=== PATIENT | female | born 1955 | race Caucasian/White ===

== ENCOUNTER → 2017-01-06 | Day surgery (SDC) | payer OTHER ==
[~2017-01-06] VITALS: Ht 170.2 cm; Wt 130.2 kg
[~2017-01-06] MED LIST: ALBUTEROL 3 ML3 ML INH; ALBUTEROL2.5 MG/3 M INH/SOL; ATORVASTATIN CA10 MG PO; BYETTA250 MCG/ML SC; CYCLOBENZAPRINE10 M1 PO; CYCLOBENZAPRINE10 MG PO; DELTASONE20 MG PO; FUROSEMIDE40 MG PO; GLUCOPHAGE1000 MG PO; GUAIFENESIN-COD10 ML PO; K-DUR 20MEQ TA20 MEQ PO; LEVEMIR 10100 UNITS/ SC; LEVEMIR100 UNIT/1 SC; LISINOPRIL5 M1 PO; LUNESTA3 M1 PO; MYCOSTATIN POWD15 GM TOP; NEURONTIN300 M1 PO; NOVOLOG100 UNIT/2 SC; OMEPRAZOLE40 M1 PO; PERCOCET 325 MG1 TA2 PO; PERCOCET 5-3251 EACH PO; PREDNISONE 10MG10 M1 PO; PREDNISONE 20MG20 MG PO; PREDNISONE10 MG PO; PROAIR HFA8.5 GM; PROTONIX 40MG T40 MG PO; ROBITUSSIN W/CO10 ML PO; ROPINIROLE HCL0.5 MG PO; Robitussin AC PO; SEROQUEL 25MG T25 MG; SEROQUEL 25MG T25 MG PO; SEROQUEL50 MG PO; SINGULAIR10 MG PO; SOLU-MEDROL40 MG IV; SPIRIVA 18 MCG18 MCG INH; SYMBICORT 160/41 PUF INH; TESSALON PERLE100 MG PO; TOUJEO SOL300 UNIT/1 SC; TRILIPIX135 MG; TRILIPIX135 MG PO; VALIUM5 MG PO; VIBRAMYCIN 100100 MG PO; VICODIN 500 MG-1 TAB PO; ZITHROMAX Z-PA250 M1 PO; ZITHROMAX250 M2 PO
--- NOTE | 2017-01-06 08:56 | Operative Report ---
Operative/Inv Procedure Report Surgery Date: 01/06/17 Name of Procedure: Laparoscopic Cholecystectomy Pre-Operative Diagnosis: Cholelithiasis/Cholecystitis, Morbid Obesity, DM Post-Operative Diagnosis: Same Estimated Blood Loss: less than 50ml Surgeon/Tower Equipment Repairer: WILBERTO CHONG DO Anesthesia: general endotracheal tube IV Fluids: 700 cc Drains: None Specimens: Gallbladder Complications: None Condition: Stable Operative Indication: This is a 61-year-old female that is in the workup for bariatric surgery. Patient with a known history of gallstones underwent a repeat ultrasound that confirmed multiple gallstones. Patient does complain of on and off upper abdominal pain. Patient is in the workup for a gastric bypass. A laparoscopic cholecystectomy was discussed in detail. All risks including but not limited to bleeding, infection, bile leak, and injury to surrounding duct/bowel were discussed in detail. The patient understood everything and decided to proceed. Operative/Procedure Note Note: The patient was brought to the operating room and placed on the operating room table in supine position. Venodyne stockings were placed and adequate general endotracheal anesthesia was obtained. The patient was prepped and draped in standard surgical fashion. We began the procedure by making a 2 cm transverse incision supraumbilically and slightly to the right of the midline. Then using a 12 mm clear visiport and a 10mm 0 laparoscope the abdominal cavity was entered. Great care was taken to go through the anterior rectus sheath, the posterior rectus sheath, and through the peritoneum. Once we entered the peritoneum the abdominal cavity was insufflated to 15 mmHg. A 10 mm 30 laparoscope was introduced and upon initial examination no obvious gross pathology was seen. We did note a mildly distended gallbladder in the right upper quadrant and a very large/fatty liver. Accessory trocars were placed, all 5 mm, one in the epigastrium and 2 in the right upper quadrant (one in the midclavicular line and one in the anterior axillary line, both 2 fingerbreadths below the costal margin). The gallbladder was grasped with the lateralmost trocar and retracted up over the liver (of note it required pressure to get the gallbladder up due to the size/volume of the liver). Using the other 2 accessory trocars the infundibulum was grasped and the peritoneum was lysed using blunt dissection and using hook electrocautery. The cystic duct and cystic artery were visualized. The common bile duct was visualized and it was away from our area of dissection. The cystic duct and artery were skeletonized and divided between clips, 3 clips to stay and one clip on the gallbladder side for the duct and 2 clips to stay and one clip on the gallbladder side for the artery. The gallbladder was dissected off the liver bed using hook electrocautery maintaining hemostasis. Prior to completely removing the gallbladder off the liver bed we examined the area of dissection no obvious bile leak or bleeding was noted, the clips appeared to be in good position. The gallbladder was completely detached from the liver bed. We switched to a 5 mm laparoscope and a 10 mm Endobag was introduced through the periumbilical trocar site. The gallbladder was placed in the bag and removed. The abdomen was reinsufflated. We switched back to a 10 mm laparoscope and examined our area of dissection. No obvious bile leak or bleeding was noted. The right upper quadrant was irrigated until clear. All ports were removed under direct visualization, no obvious bleeding was noted. The skin was closed using 4-0 Monocryl. Steri-Strips and dressings were placed. The patient was successfully extubated and transferred to the recovery room in stable condition. The patient tolerated the procedure well with no complications. Findings: Large/fatty liver, multiple gallstones, thick wall CC: JUS WHITE APRN
== END ==
LOC: STS 02:53
DX: K80.10 Calculus of gallbladder with chronic cholecystitis without obstruction (principal); E11.9 Type 2 diabetes mellitus without complications; Z79.84 Long term (current) use of oral hypoglycemic drugs; E66.01 Morbid (severe) obesity due to excess calories; I10 Essential (primary) hypertension; J44.9 Chronic obstructive pulmonary disease, unspecified
CPT/HCPCS: 88304; J0131; J0690; J1100; J1644; J2250; J2405

== ENCOUNTER 2018-02-15 19:11 | Inpatient (IN) | payer OTHER ==
[~2018-02-15] VITALS: Ht 170.2 cm; Wt 97.5 kg
[~2018-02-15 19:11] MED LIST changes: +BYETTA10 MCG/0.0 SC; +BYETTA5 MCG/0.02 SC; +ESZOPICLONE3 M1 PO; +FUROSEMIDE20 M1 PO; -FUROSEMIDE40 MG PO; +GABAPENTIN400 M2 PO; +GLUCOPHAGE1000 M1 PO; -GLUCOPHAGE1000 MG PO; +HYDROCODON-ACE118 ML PO; +HYDROCODON-ACET15 ML PO; +HYDROCODONE CO120 ML PO; +LIDOCAINE-PRILO30 GM TOP; +LOVENOX40 MG/0.1 SC; +NORCO 5-325 TA1 EACH PO; +NOVOLOG100 UNIT/1; +PREMARIN30 GM; +PROTONIX40 M3 PO; +REQUIP1 M1 PO; +SINGULAIR10 M1 PO; -SINGULAIR10 MG PO; +TRILIPIX135 M1 PO; -TRILIPIX135 MG PO; +VALIUM5 M2 PO
--- NOTE | 2018-02-15 19:54 | ED NECK/BACK PAIN COMPLAINT ---
History of Present Illness General Chief Complaint: Low Back Pain/Injury Stated Complaint: LOWER BACK PAIN KNOWN KIDNEY STONE Source: patient, old records, son Exam Limitations: no limitations Vital Signs & Intake/Output Vital Signs & Intake/Output Vital Signs Date Time Temp Pulse Resp B/P B/P Pulse O2 O2 Flow FiO2 Mean Ox Delivery Rate 02/16 0123 97.8 78 18 140/67 97 Room Air 02/15 2245 97.0 81 22 130/76 98 Room Air 02/15 2117 97.4 73 18 130/68 98 02/15 1924 98.0 80 16 123/81 98 Room Air ED Intake and Output 02/16 0000 02/15 1200 Intake Total Output Total Balance Patient 201 lb Weight Weight Reported by Patient Measurement Method Allergies Coded Allergies: NO KNOWN ALLERGIES (08/07/16) Reconcile Medications Cyclobenzaprine HCl 10 MG TABLET 1 TAB PO TID SPASM (Reported) Eszopiclone 3 MG TABLET 1 TAB PO QPM SLEEP (Reported) Lidocaine/Prilocaine (Lidocaine-Prilocaine Cream) 2.5 %-2.5 % CREAM..G. 1 BRIGITTE TOP AD ARTHRITIC PAIN (Reported) Montelukast Sodium (Singulair) 10 MG TABLET 1 TAB PO DAILY ALLERGIES ( Reported) Ropinirole HCl (Requip) 1 MG TABLET 1 TAB PO QPM RESTLESS LEGS (Reported) Triage Note: PT HAS KNOWN LEFT KIDNEY STONE. SCHEDULED FOR PROCEDURE ON WEDNESDAY TO REMOVE. RAN OUT OF PERCOCET. STATES PAIN UNBEARABLE, CANNOT TOLERATE UNTIL WEDNESDAY. DENIES FEVERS/CHILLS. Triage Nurses Notes Reviewed? yes HPI: Patient presents for evaluation of severe constant left flank pain secondary to a known left kidney stone for which lithotripsy is pending next week. She states this particular episode of pain began at about 245 this afternoon. This described as a severe tearing pain in the left low back similar to prior kidney stone pain. The pain radiates to the left lower quadrant and to the left thigh. Patient hasn't tried any medications for this. She states she has had some pain with urination. (Mariella MCKINNON,Lars Norris) Past History Travel History Traveled to [place] past 21 day No Medical History Any Pertinent Medical History? 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 FATHER, ; Cause: Cancer. Relation not specified for: FH: cancer FH: diabetes mellitus Hx Contributory? No (Mariella MCKINNON,Lars Norris) Review of Systems Review of Systems Constitutional: Reports: no symptoms. Eyes: Reports: no symptoms. Ears, Nose, Throat, Mouth: Reports: no symptoms. Respiratory: Reports: no symptoms. Cardiovascular: Reports: no symptoms. Gastrointestinal/Abdominal: Reports: no symptoms. Musculoskeletal: Reports: see HPI. Skin: Reports: no symptoms. Neurological/Psychological: Reports: no symptoms. All Other Systems: Reviewed and Negative (aside from dysuria) (Mariella MCKINNON,Lars Norris) Physical Exam Physical Exam Neck: see below Comments: Gen.: Well-nourished, well-developed, no acute respiratory distress. Head: Normocephalic, atraumatic. Eyes: Normal inspection bilaterally Ears: Normal inspection bilaterally Nose: Normal inspection Throat/mouth : Moist mucosa Neck: Supple, full range of motion, no goiter Heart: Regular rate and rhythm, no murmurs rubs or gallops Lungs: Clear to auscultation bilaterally with normal air entry Chest: Nontender Back: Normal range of motion Abdomen: Soft, nontender, nondistended, normal bowel sounds Extremities: Normal range of motion grossly, equal radial pulses, no cyanosis clubbing or edema Neurologic: Cranial nerves grossly intact, speech is clear Skin: warm and dry Psychiatric: Calm, cooperative, no apparent delusions or hallucinations Core Measures CVA/TIA Diagnosis: No (Mariella MCKINNON,Lars Norris) Progress Differential Diagnosis: cauda equina syn, herniated disc, myofascial strain, ureterolithiasis Plan of Care: Orders Procedure Date/time Status Nothing by Mouth 02/16 B Active PARTIAL THROMBOPLASTIN TIME 02/16 118 Active PROTHROMBIN TIME 02/16 118 Active EKG 06/13 0118 Active TYPE & SCREEN (NOT X-MATCH) 02/16 0118 Active Pathway - chart 02/16 109 Active House Staff 02/16 109 Active Code Status 02/16 109 Active Patient Data 02/16 010 Active Saline Lock 02/16 37 Active ED Holding Orders 02/16 37 Active Admit to inpatient 02/16 37 Active Vital Signs 02/16 37 Active Code Status 02/16 37 Complete BLOOD CULTURE 02/160 Active Add-on Test (ER Only) 02/16 19 Active BLOOD CULTURE 02/16 19 Active VTE Mechanical Prophylaxis 02/16 UNK Active Intake & Output 02/15 2214 Active CULTURE,URINE 02/15 2205 Active URINALYSIS 02/15 1958 Complete LIPASE 02/15 1958 Complete COMPREHENSIVE METABOLIC PANEL 02/15 1958 Complete CBC WITHOUT DIFFERENTIAL 02/15 1958 Complete Laboratory Tests 02/15/182204: Urine Color YEL, Urine Clarity HAZY H, Urine pH 6.5, Ur Specific Roland 1.020, Urine Protein NEG, Urine Ketones NEG, Urine Nitrite NEG, Urine Bilirubin NEG, Urine Urobilinogen 0.2, Ur Leukocyte Esterase SMALL H, Ur Microscopic SEDIMENT EXAMINED, Urine RBC 3-5, Urine WBC 25-50 H, Ur Epithelial Cells RARE, Urine Bacteria FEW H, Urine Mucus MOD H, Urine Hemoglobin SMALL H, Urine Glucose NEG 02/15/182014: Anion Gap 10, Estimated GFR > 60, BUN/Creatinine Ratio 21.7, Glucose 121 H, Calcium 9.0, Total Bilirubin 0.4, AST 23, ALT 29, Alkaline Phosphatase 47, Total Protein 6.7, Albumin 3.9, Globulin 2.8, Albumin/Globulin Ratio 1.4, Lipase 740 H, CBC w Diff NO MAN DIFF REQ, RBC 3.86 L, MCV 90.7, MCH 30.7, MCHC 33.9, RDW 13.3, MPV 7.6, Gran % 64.7, Lymphocytes % 28.9, Monocytes % 5.1, Eosinophils % 1.0, Basophils % 0.3, Absolute Granulocytes 3.8, Absolute Lymphocytes 1.7, Absolute Monocytes 0.3, Absolute Eosinophils 0.1, Absolute Basophils 0 Microbiology 02/16 002 BLOOD: Blood Culture - ORD 02/16 19 BLOOD: Blood Culture - ORD 02/15 2205 URINE ROUT: Urine Culture - RECD Diagnostic Imaging: Discussed w/RAD: CT Scan. Radiology Impression: PATIENT: JANETH GRESHAM PRESENT AGE: 62 PATIENT ACCOUNT NO: [id number] : 56 LOCATION: [facility] ORDERING PHYSICIAN: Lars Wolff MD SERVICE DATE: 02/15/18 EXAM TYPE : CAT - CT ABD & PELVIS W/O IV CONTRAS EXAMINATION: CT ABDOMEN AND PELVIS WITHOUT CONTRAST CLINICAL INFORMATION: Left renal stone. Hydronephrosis. COMPARISON: Renal ultrasound 01/15/[address] of the abdomen and pelvis 2012. TECHNIQUE: Multidetector volumetric imaging was performed from the superior aspect of the liver through the pubic symphysis. Sagittal and coronal reformatted images were obtained on the technologist's workstation. DLP: 816 mGy -cm FINDINGS: LUNG BASES: The visualized lung bases are unremarkable. LIVER, GALLBLADDER, AND BILIARY TREE: There is a subcentimeter hypoattenuating lesion in the right lobe which is too small to further characterize but is stable since 08/27/2013. No intrahepatic biliary ductal dilatation. Cholecystectomy. PANCREAS : Unremarkable. SPLEEN: Unremarkable. Small splenule noted at the hilum. ADRENAL GLANDS: Unremarkable. KIDNEYS AND URETERS: Left: 2 calculi are present in the renal pelvis measuring 1.4 cm and 1.9 cm. The 1.4 cm calculus is obstructing the ureteropelvic junction. There is an additional punctate calculus in the interpolar region. There is hydronephrosis with pelviectasis and perinephric and periureteral stranding. The middle third of the ureter demonstrates normal caliber without periureteral stranding. Right: No right- sided calculi, hydronephrosis, or stranding. BLADDER: Decompressed but grossly normal. GASTROINTESTINAL TRACT: Postoperative changes related to gastric bypass surgery. No bowel obstruction. Normal appendix. No pericolonic inflammatory change. ABDOMINAL WALL: Small soft tissue nodules in the anterior abdominal wall likely represent granulomas which may be related to injection sites. LYMPH NODES : Small mahogany hepatis and portacaval lymph nodes which are likely reactive. VASCULAR: Minimal atheromatous changes in the abdominal aorta and its branch vessels. PELVIC VISCERA: Normal uterus and adnexa. OSSEOUS STRUCTURES: Multilevel degenerative changes in the thoracolumbar spine. Advanced facet arthropathy L4-L5 and L5-S1. No destructive osseous lesion. IMPRESSION: - Left kidney is obstructed at the level of the ureteropelvic junction by a 1.9 cm calculus. An additional 1.4 cm calculus is seen in the renal pelvis. There is perinephric and periureteral stranding. - Postoperative findings related to gastric bypass surgery. - No other acute abnormality in the abdomen or pelvis. DICTATED BY: Yanira Retana MD DATE/TIME DICTATED:02/15/182122 JOURNAL CLERK:SHINE DATE/TIME TRANSCRIBED:02/15/182122 CONFIDENTIAL, DO NOT COPY WITHOUT APPROPRIATE AUTHORIZATION. <Electronically signed in Other Vendor System> SIGNED BY: Yanira Retana MD 02/15/18 4509 Comments: 02/15/2018 10:46:50 PM patient's CAT scan reveals 2 renal pelvic stones. She is feeling better after morphine. She has white cells in the urine and she has an obstructive stone and so I am attempting to contact Dr. Choudhury. 02/15/2018 11:36:22 PM patient signed out to Dr. Fuentes at shift discovery manager. (Mariella MCKINNON,Lars Norris) Departure Departure Disposition: STILL A PATIENT Condition: Stable Referrals: Jeanette Johnson APRN (PCP/Family) Departure Forms: Customer Survey General Discharge Information (Mariella MCKINNON,Lars Norris) Departure Clinical Impression Primary Impression: Renal colic on left side Secondary Impressions: Kidney stones, Pyelonephritis, Ureteral obstruction, right Comments 02/16/18, 0:21.... discussed with dr. meier, urologist, who will take her to the OR for a stent. Admission Note Spoke With: Wilma Silva MD Documentation of Exam: Documentation of any treatments & extenuating circumstances including Concerns Regarding Discharge (functional status, medication knowledge or non-compliance, living conditions, etc.) that warrant an admission rather than observation: pt with 1.9cm kidney stone, with evidence of pyelonephritis... merits urgent stenting and iv abx (Zafar Fuentes MD) Critical Care Note Critical Care Note Critical Care Time: 30-74 min (Zafar Fuentes MD)
[2018-02-15 20:24] LABS: ABSOLUTE BASOPHIL COUNT 0 /CUMM (0.0-0.2); ABSOLUTE EOSINOPHIL COUNT 0.1 /CUMM (0.0-0.7); ABSOLUTE GRANULOCYTE CT 3.8 /CUMM (1.4-6.5); ABSOLUTE LYMPH COUNT 1.7 /CUMM (1.2-3.4); ABSOLUTE MONOCYTE COUNT 0.3 /CUMM (0.10-0.60); BASOPHIL % 0.3 % (0.0-2.0); GRANULOCYTE % 64.7 % (42.2-75.2); MEAN CORPUSCULAR HGB 30.7 PG (27.0-31.0); MEAN CORPUSCULAR HGB CONC 33.9 G/DL (33.0-37.0); MEAN CORPUSCULAR VOLUME 90.7 FL (81.0-99.0); MEAN PLATELET VOLUME 7.6 FL (7.4-10.4); PLATELET COUNT 210 /CUMM (130-400); RBC DISTRIBUTION WIDTH 13.3 % (11.5-14.5); RED BLOOD CELL CT 3.86 /CUMM (4.20-5.40); WHITE BLOOD CELL COUNT 5.9 /CUMM (4.8-10.8)
--- NOTE | 2018-02-15 21:50 | CT SCAN REPORT ---
EXAMINATION: CT ABDOMEN AND PELVIS WITHOUT CONTRAST CLINICAL INFORMATION: Left renal stone. Hydronephrosis. COMPARISON: Renal ultrasound 01/15/[address] of the abdomen and pelvis 08/28/2013. TECHNIQUE: Multidetector volumetric imaging was performed from the superior aspect of the liver through the pubic symphysis. Sagittal and coronal reformatted images were obtained on the technologist's workstation. DLP: 816 mGy-cm FINDINGS: LUNG BASES: The visualized lung bases are unremarkable. LIVER, GALLBLADDER, AND BILIARY TREE: There is a subcentimeter hypoattenuating lesion in the right lobe which is too small to further characterize but is stable since 08/27/2013. No intrahepatic biliary ductal dilatation. Cholecystectomy. PANCREAS: Unremarkable. SPLEEN: Unremarkable. Small splenule noted at the hilum. ADRENAL GLANDS: Unremarkable. KIDNEYS AND URETERS: Left: 2 calculi are present in the renal pelvis measuring 1.4 cm and 1.9 cm. The 1.4 cm calculus is obstructing the ureteropelvic junction. There is an additional punctate calculus in the interpolar region. There is hydronephrosis with pelviectasis and perinephric and periureteral stranding. The middle third of the ureter demonstrates normal caliber without periureteral stranding. Right: No right-sided calculi, hydronephrosis, or stranding. BLADDER: Decompressed but grossly normal. GASTROINTESTINAL TRACT: Postoperative changes related to gastric bypass surgery. No bowel obstruction. Normal appendix. No pericolonic inflammatory change. ABDOMINAL WALL: Small soft tissue nodules in the anterior abdominal wall likely represent granulomas which may be related to injection sites. LYMPH NODES: Small mahogany hepatis and portacaval lymph nodes which are likely reactive. VASCULAR: Minimal atheromatous changes in the abdominal aorta and its branch vessels. PELVIC VISCERA: Normal uterus and adnexa. OSSEOUS STRUCTURES: Multilevel degenerative changes in the thoracolumbar spine. Advanced facet arthropathy L4-L5 and L5-S1. No destructive osseous lesion. IMPRESSION: - Left kidney is obstructed at the level of the ureteropelvic junction by a 1.9 cm calculus. An additional 1.4 cm calculus is seen in the renal pelvis. There is perinephric and periureteral stranding. - Postoperative findings related to gastric bypass surgery. - No other acute abnormality in the abdomen or pelvis.
--- NOTE | 2018-02-16 01:46 | History & Physical ---
Rebecca MCKINNON,Prudencio 02/16/18 0146: General Information and HPI MD Statement: I have seen and personally examined JANETH GRESHAM and documented this H&P. The patient is a 62 year old F who presented with a patient stated chief complaint of [L flank pain, renal calculus]. Source of Information: patient, old records Exam Limitations: no limitations History of Present Illness: Patient is a 62-year-old female with a PMH significant for COPD, asthma, obstructive sleep apnea on CPAP, type 2 diabetes mellitus which resolved after gastric bypass surgery in May 2017, recurrent renal calculi, who presented to the [facility] ED complaining of severe left flank pain, nausea, vomiting. Patient's symptoms began approximately 1 month ago with left-sided flank pain radiating to the left lower quadrant of her abdomen, she follows with Dr. Choudhury who diagnosed the patient with a renal calculus and prescribed oral analgesic medication, patient's pain was under control until about 2 weeks ago when the pain recurred and was intermittent sharp. The morning of admission at approximately 11 AM pain became very severe with associated nausea and vomiting, at approximately 1430 the pain worsened and became unremitting. Since the onset of the pain patient has had hematuria, and mild dysuria. Patient endorses on the day of admission. She denies any fevers, chest pain, shortness of breath, lightheadedness, dizziness, syncope. Allergies/Medications Allergies: Coded Allergies: NO KNOWN ALLERGIES (08/07/16) Home Med list Cyclobenzaprine HCl 10 MG TABLET 1 TAB PO TID SPASM (Reported) Eszopiclone 3 MG TABLET 1 TAB PO QPM SLEEP (Reported) Lidocaine/Prilocaine (Lidocaine-Prilocaine Cream) 2.5 %-2.5 % CREAM..G. 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 FATHER, ; Cause: Cancer. Relation not specified for: FH: cancer FH: diabetes mellitus Psychosocial History Where do you live? Home Services at Home: None Primary Language: Micronesian Smoking Status: Former Smoker ETOH Use: denies use Illicit Drug Use: denies illicit drug use Functional Ability ADLs Independent: dressing, eating, toileting, bathing. Ambulation: independent IADLs Independent: shopping, housework, finances, food prep, telephone, transportation , medication admin. Review of Systems Review of Systems Constitutional: Reports: chills. Denies: fever, malaise. EENTM: Denies: blurred vision, double vision, visual changes. Cardiovascular: Denies: chest pain, palpitations, syncope. Respiratory: Denies: cough, short of breath, sputum production, wheezing. GI: Reports: abdominal pain (LLQ pain/L flank pain), nausea, vomiting. Denies: bloating, constipation, melena. Genitourinary: Reports: dysuria, frequency, hematuria. Musculoskeletal: Reports: no symptoms. Skin: Reports: no symptoms. Neurological/Psychological: Reports: no symptoms. Exam & Diagnostic Data Last 24 Hrs of Vital Signs/I&O Vital Signs Date Time Temp Pulse Resp B/P B/P Pulse O2 O2 Flow FiO2 Mean Ox Delivery Rate 02/16 0123 97.8 78 18 140/67 97 Room Air 02/15 2245 97.0 81 22 130/76 98 Room Air 02/157 97.4 73 18 130/68 98 02/15 1924 98.0 80 16 123/81 98 Room Air Intake & Output 02/16 0800 02/16 0000 02/15 1600 Intake Total Output Total Balance Patient 201 lb Weight Weight Reported by Patient Measurement Method Physical Exam General Appearance Alert, Oriented X3, Cooperative, No Acute Distress Skin Temp/Moisture Exam: Warm/Dry Sepsis Skin Exam (color): Normal for Ethnicity Cardiovascular Regular Rate, Normal S1, Normal S2, No Murmurs Lungs Clear to Auscultation, Normal Air Movement Abdomen Normal Bowel Sounds, Soft, LLQ, epigastric area tenderness to palpation, L CVA tenderness Neurological Normal Speech, Strength at 5/5 X4 Ext, Normal Tone, Sensation Intact, Cranial Nerves 3-12 NL Extremities No Clubbing, No Cyanosis, No Edema Last 24 Hrs of Labs/Rudy: Laboratory Tests 02/16/18114: PT 12.6 H, INR 1.15, APTT 40 H 02/15/182204: Urine Color YEL, Urine Clarity HAZY H, Urine pH 6.5, Ur Specific [place] 1.020, Urine Protein NEG, Urine Ketones NEG, Urine Nitrite NEG, Urine Bilirubin NEG, Urine Urobilinogen 0.2, Ur Leukocyte Esterase SMALL H, Ur Microscopic SEDIMENT EXAMINED, Urine RBC 3-5, Urine WBC 25-50 H, Ur Epithelial Cells RARE, Urine Bacteria FEW H, Urine Mucus MOD H, Urine Hemoglobin SMALL H, Urine Glucose NEG 02/15/182014: Anion Gap 10, Estimated GFR > 60, BUN/Creatinine Ratio 21.7, Glucose 121 H, Calcium 9.0, Total Bilirubin 0.4, AST 23, ALT 29, Alkaline Phosphatase 47, Total Protein 6.7, Albumin 3.9, Globulin 2.8, Albumin/Globulin Ratio 1.4, Lipase 740 H, CBC w Diff NO MAN DIFF REQ, RBC 3.86 L, MCV 90.7, MCH 30.7, MCHC 33.9, RDW 13.3, MPV 7.6, Gran % 64.7, Lymphocytes % 28.9, Monocytes % 5.1, Eosinophils % 1.0, Basophils % 0.3, Absolute Granulocytes 3.8, Absolute Lymphocytes 1.7, Absolute Monocytes 0.3, Absolute Eosinophils 0.1, Absolute Basophils 0 Microbiology 02/165 BLOOD: Blood Culture - RECD 02/16 115 BLOOD: Blood Culture - RECD 02/15 2205 URINE ROUT: Urine Culture - RECD Diagnostic Data Other Results LUNG BASES: The visualized lung bases are unremarkable. LIVER, GALLBLADDER, AND BILIARY TREE: There is a subcentimeter hypoattenuating lesion in the right lobe which is too small to further characterize but is stable since 08/27/2013. No intrahepatic biliary ductal dilatation. Cholecystectomy. PANCREAS: Unremarkable. SPLEEN: Unremarkable. Small splenule noted at the hilum. ADRENAL GLANDS: Unremarkable. KIDNEYS AND URETERS: Left: 2 calculi are present in the renal pelvis measuring 1.4 cm and 1.9 cm. The 1.4 cm calculus is obstructing the ureteropelvic junction. There is an additional punctate calculus in the interpolar region. There is hydronephrosis with pelviectasis and perinephric and periureteral stranding. The middle third of the ureter demonstrates normal caliber without periureteral stranding. Right: No right-sided calculi, hydronephrosis, or stranding. BLADDER: Decompressed but grossly normal. GASTROINTESTINAL TRACT: Postoperative changes related to gastric bypass surgery. No bowel obstruction. Normal appendix. No pericolonic inflammatory change. ABDOMINAL WALL: Small soft tissue nodules in the anterior abdominal wall likely represent granulomas which may be related to injection sites. LYMPH NODES: Small mahogany hepatis and portacaval lymph nodes which are likely reactive. VASCULAR: Minimal atheromatous changes in the abdominal aorta and its branch vessels. PELVIC VISCERA: Normal uterus and adnexa. OSSEOUS STRUCTURES: Multilevel degenerative changes in the thoracolumbar spine. Advanced facet arthropathy L4-L5 and L5-S1. No destructive osseous lesion. IMPRESSION: - Left kidney is obstructed at the level of the ureteropelvic junction by a 1.9 cm calculus. An additional 1.4 cm calculus is seen in the renal pelvis. There is perinephric and periureteral stranding. - Postoperative findings related to gastric bypass surgery. - No other acute abnormality in the abdomen or pelvis. Assessment/Plan Assessment: Patient is a 62-year-old female with a PMH significant for COPD, asthma, obstructive sleep apnea on CPAP, type 2 diabetes mellitus which resolved after gastric bypass surgery in May 2017, recurrent renal calculi, who presented to the [facility] ED complaining of severe left flank pain, nausea, vomiting. Patient was diagnosed with a left-sided renal calculus 1 month ago was being managed with p.o. analgesics and had been scheduled for lithotripsy on 02/21/18. Pain worsened approximately 2 weeks ago and became uncontrollable with associated nausea and vomiting on the day of presentation. Patient had also had hematuria and dysuria during this time. CT showed obstructing 1.9 cm calculus at the left ureteropelvic junction as well as a 1.4 centimeter calculus in the renal pelvis Vital signs on presentation: T 98, P 80, RR 16, BP 123/81, pulse ox 98% on room air Labs: WBC 5.9, H/H 11.9/35, platelets 210, CMP unremarkable, lipase 740, UA: small LE, pyuria, bacteria, small hemoglobin moderate mucus Problem list #Obstructing left renal calculus #Intractable nausea, vomiting, left flank pain #Chronic medical problems including COPD, MIRLANDE Plan -Admit to general medicine floor -Urology consult placed with Dr. Page, who will take patient to OR for stent placement -IV ceftriaxone -Nocturnal CPAP setting 13 -Trend lipase, likely elevated secondary to vomiting -Gentle hydration with IV fluids -TRC/nebs -Comfirm medication list in a.m. Diet: Clear liquid diet postoperatively and advance as tolerated given intractable nausea, vomiting DVT prophylaxis: Subcutaneous heparin, Alps CODE STATUS: Full code As Ranked By This Provider Problem List: 1. Kidney stones 2. Renal colic on left side Core Measures/Misc (05/23) Acute Coronary Syndrome ACS Diagnosis: No Congestive Heart Failure Congestive Heart Failure Diagnosis No Cerebrovascular Accident CVA/TIA Diagnosis: No VTE (View Protocol) VTE Risk Factors Age>40 No Mechanical VTE Prophylaxis d/t N/A MechProphylax Ordered No VTE Pharm Prophylaxis d/t NA PharmProphylax ordered Sepsis (View protocol) Sepsis Present: No If YES complete Sepsis Event Note If YES complete Sepsis Event Note Ari MCKINNON,[facility] 02/16/18 0401: Core Measures/Misc (05/23) Sepsis (View protocol) If YES complete Sepsis Event Note If YES complete Sepsis Event Note Resident Review Statement Resident Statement: examined this patient, discussed with journalism intern, agreed with journalism intern Other Findings: 62\F with PMHx COPD not on home o2, asthma, MIRLANDE on CPAP , T2DM that resolved after gastric bypass 05/2017, recurrent renal calculi, who presented with CC of severe left flank pain, nausea, vomiting. She reprort left side flank pain that started around 4 weeks ago, she was scheduled for stone removal next Wednesday by Dr. Choudhury. Her pain was fairly managed until 2 weeks ago when he started to be out of control. Earlier today she started to complain of CV her left flank pain that radiates to the groin and associated with nausea and nonbloody vomiting. She reports dysuria and hematuria, but denies fever, chills, diarrhea or constipation. CT abdomen confirmed left hydronephrosis with large obstructing stone. The patient was taken from the ED to the OR for left stent insertion by Dr. Page. Assessment The patient has a known history of recurrent kidney stone, tented with left flank pain and was found to have hydronephrosis with obstructive stone. She was taken to the OR by urology for stent placement. Control her pain, ausea and follow neurology recommendations. The patient has dysuria and hematuria. We will treat for UTI with ceftriaxone. She is hemodynamically stable and does not need the criteria for source. Problem list: * Left flank pain secondary to Left renal calculus with hydronephrosis and obstruction * UTI, grew pansensitive Escherichia coli in the past * Nausea and vomiting * Elevated lipase most likely secondary to nausea * COPD * MIRLANDE * Asthma * hx of T2DM Plan: * Admitted to general medicine floor * Continue IV ceftriaxone for UTI * Blood culture and urine culture * TRC/nebs * CPAP * Repeat lipase in the morning * IV hydration until tolerates oral intake * urology consult * Please confirm the medication in the morning -Clear liquid diet, advance as tolerated -DVT PPx with ALPS and SC hep -FC Wilma Silva 02/16/18 0643: Core Measures/Misc (05/23) Sepsis (View protocol) If YES complete Sepsis Event Note If YES complete Sepsis Event Note Attending MD Review Statement Attending Statement Attending MD Statement: examined this patient, discuss w/resident/PA/MATHEMATICS TECHNICIAN, agreed w/resident/PA/MATHEMATICS TECHNICIAN, reviewed EMR data (avail), reviewed images, amended to note Attending Assessment/Plan: CC: Left flank pain PMH: COPD, asthma, obstructive sleep apnea on CPAP, type 2 diabetes mellitus which resolved after gastric bypass surgery in May 2017, recurrent renal calculi, Patient came to ER for severe left-sided flank pain. She states that she has recurrent kidney stones and there is a large kidney stone on left side for which there was a planned procedure on Wednesday but she had worsening of pain, hematuria , dysuria, urinary frequency, fever, chills, nausea, vomiting and home so she decided to come to ER. She has been intermittently suffering with pain secondary to the stone since last 1 month. Patient follows up with Dr. Choudhury outpatient. Vitals: Temperature 98.0, pulse 80, RR 16, blood pressure 123/81, saturating 98% on room air. On exam: A O 3, cooperative, no acute distress, neck supple, JVD normal, no lymphadenopathy, mucosa moist, no focal neurological deficit, no dependent edema , no obvious skin rashes or inflammation CVS: S1-S2, RRR. RS: Clear to auscultate bilaterally. Abdomen: Soft, NT, ND, bowel sounds present mild left- sided CVA tenderness. CT abdomen pelvis without IV contrast: - Left kidney is obstructed at the level of the ureteropelvic junction by a 1.9 cm calculus. An additional 1.4 cm calculus is seen in the renal pelvis. There is perinephric and periureteral stranding. - Postoperative findings related to gastric bypass surgery. - No other acute abnormality in the abdomen or pelvis. Assessment and plan 62-year-old female with extensive past medical history as mentioned above presented in ER for severe left-sided flank pain with underlying history of left intrarenal stone. She had right CVA tenderness on examination, CT abdomen was repeated which showed obstructing stone in the ureteropelvic junction 1.9 cm with suspected pyelonephritis. Urologist was called from ER who came to evaluate the patient and inserted left sided stent. Patient is expected to get outpatient lithotripsy done by Dr. Choudhury on Wednesday, we will reconsult her if she plans to report the procedure. Patient also has elevated lipase probably secondary to vomiting + Obstructing left ureteropelvic calculus + Left pyelonephritis + History of COPD, asthma, obstructive sleep apnea on CPAP, type 2 diabetes mellitus which resolved after gastric bypass surgery in May 2017, recurrent renal calculi - Admit to general medicine - Gentle hydration - Aggressive pain management - Continue IV ceftriaxone - Trend lactate, repeat lipase in a.m. - Send urine cultures - Consult Dr. Choudhury - Continue nighttime CPAP
[2018-02-16 01:52] LABS: PT 12.6 SEC (9.4-12.5); PTT 40 SEC (25-37)
--- NOTE | 2018-02-16 01:52 | Cons- Urology ---
General Information and HPI Consulting Request Date of Consult: 02/16/18 Requested By: Wilma Silva MD Reason for Consult: SEVERE LEFT COLIC WITH N/V:UNCONTROLLED PAIN Source of Information: patient, old records Exam Limitations: no limitations History of Present Illness: 62 YEAR OLD WITH MULTIPLE MEDICAL PROBLEMS, CAME TO ER WITH SEVERE LEFT COLIC WITH N/V UNRESOLVED IN ER. CT CONFIRMS LEFT HYDRO WITH LARGE OBSTRUCTING URETER STONE. TO OR FOR STENT. ADMIT TO MED. FOR MANAGEMENT. Allergies/Medications Allergies: Coded Allergies: NO KNOWN ALLERGIES (08/07/16) Home Med List: Cyclobenzaprine HCl 10 MG TABLET 1 TAB PO TID SPASM (Reported) Eszopiclone 3 MG TABLET 1 TAB PO QPM SLEEP (Reported) Lidocaine/Prilocaine (Lidocaine-Prilocaine Cream) 2.5 %-2.5 % CREAM..G. 1 BRIGITTE TOP AD ARTHRITIC PAIN (Reported) Montelukast Sodium (Singulair) 10 MG TABLET 1 TAB PO DAILY ALLERGIES ( Reported) Ropinirole HCl (Requip) 1 MG TABLET 1 TAB PO QPM RESTLESS LEGS (Reported) Current Medications: Current Medications Sig/Rai Start time Last Medication Dose Route Stop Time Status Admin Ceftriaxone Sodium 1,000 MG DAILY 02/16 0900 UNVr IV Ceftriaxone Sodium 0 .STK-MED ONE 02/167 DC .ROUTE Ceftriaxone Sodium 2,000 MG ONCE ONE 02/15 233 DC 02/16 IV 02/15 2331 0136 Diphenhydramine HCl 0 .STK-MED ONE 02/158 DC .ROUTE Diphenhydramine HCl 25 MG ONCE ONE 02/15 2200 DC 02/15 IV 02/15 2201 2214 Ketorolac 0 .STK-MED ONE 02/15 2019 DC Tromethamine .ROUTE Ketorolac 30 MG ONCE ONE 02/16 2000 DC 02/15 Tromethamine IV 02/15 Morphine Sulfate 0 .STK-MED ONE 02/16 2232 DC .ROUTE Morphine Sulfate 6 MG ONCE ONE 02/15 2200 DC 02/15 IV 02/151 2227 Ondansetron HCl 0 .STK-MED ONE 02/15 2019 DC .ROUTE Ondansetron HCl 4 MG ONCE ONE 02/16 2000 DC 02/15 IV 02/15 Past History Medical History Neurological: NONE EENT: NONE Cardiovascular: hyperlipidemia Respiratory: asthma, bronchitis, COPD, obstructive sleep apnea, pulmonary embolism, pneumonia Gastrointestinal: NONE Hepatic: NONE Renal: RENAL CALCULI Musculoskeletal: chronic back pain Psychiatric: NONE Endocrine: diabetes Blood Disorders: NONE Cancer(s): NONE 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 FATHER, ; Cause: Cancer. Relation not specified for: FH: cancer FH: diabetes mellitus Psychosocial History Services at Home: None Functional Ability ADLs Independent: dressing, eating, toileting, bathing. Ambulation: independent IADLs Independent: shopping, housework, finances, food prep, telephone, transportation , medication admin. Review of Systems Review of Systems Constitutional: Reports: chills. EENTM: Denies: no symptoms. Cardiovascular: Denies: no symptoms. Respiratory: Denies: no symptoms. GI: Reports: abdominal pain, bloating. Genitourinary: Reports: hematuria. Musculoskeletal: Denies: no symptoms. Neurological/Psychological: Denies: no symptoms. Exam & Diagnostic Data Vital Signs and I&O Vital Signs Date Time Temp Pulse Resp B/P B/P Pulse O2 O2 Flow FiO2 Mean Ox Delivery Rate 02/16 0123 97.8 78 18 140/67 97 Room Air 02/15 2245 97.0 81 22 130/76 98 Room Air 02/157 97.4 73 18 130/68 98 02/15 1924 98.0 80 16 123/81 98 Room Air Intake & Output 02/16 0800 02/16 0000 02/15 1600 02/15 0800 02/15 0000 02/14 1600 Intake Total Output Total Balance Patient 201 lb Weight Weight Reported by Patient Measurement Method Physical Exam General Appearance: well developed/nourished, obese Head: atraumatic Eyes: Bilateral: normal appearance. Neck: normal inspection Respiratory: normal breath sounds Cardiovascular: regular rate/rhythm Gastrointestinal: normal bowel sounds Back: CVA tenderness (L) Extremities: normal inspection Neurologic/Psych: no motor/sensory deficits Reproductive: Normal female genitalia Last 24 Hours of Labs: Laboratory Tests 02/16 02/15 0115 2205 Coagulation PT Pending INR Pending APTT Pending Urines Urine Color (YEL,AMB,STR) YEL Urine Clarity (CLEAR) HAZY H Urine pH (5.0 - 8.0) 6.5 Ur Specific [place] (1.001 - 1.035) 1.020 Urine Protein (NEG,<30 MG/DL) NEG Urine Ketones (NEG) NEG Urine Nitrite (NEG) NEG Urine Bilirubin (NEG) NEG Urine Urobilinogen (0.1 - 1.0 EU/dl) 0.2 Ur Leukocyte Esterase (NEG) SMALL H Ur Microscopic SEDIMENT EXAMINED Urine RBC (0 - 5 /HPF) 3-5 Urine WBC (0 - 2 /HPF) 25-50 H Ur Epithelial Cells (NONE,FEW) RARE Urine Bacteria (NEG/NONE) FEW H Urine Mucus (FEW,NONE) MOD H Urine Hemoglobin (NEG) SMALL H Urine Glucose (N MG/DL) NEG 02/15 2015 Chemistry Sodium (137 - 145 mmol/L) 137 Potassium (3.5 - 5.1 mmol/L) 4.2 Chloride (98 - 107 mmol/L) 102 Carbon Dioxide (22 - 30 mmol/L) 24 Anion Gap (5 - 16) 10 BUN (7 - 17 mg/dL) 13 Creatinine (0.5 - 1.0 mg/dL) 0.6 Estimated GFR (>60 ml/min) > 60 BUN/Creatinine Ratio (7 - 25 %) 21.7 Glucose (65 - 99 mg/dL) 121 H Calcium (8.4 - 10.2 mg/dL) 9.0 Total Bilirubin (0.2 - 1.3 mg/dL) 0.4 AST (14 - 36 U/L) 23 ALT (9 - 52 U/L) 29 Alkaline Phosphatase (<127 U/L) 47 Total Protein (6.3 - 8.2 g/dL) 6.7 Albumin (3.5 - 5.0 g/dL) 3.9 Globulin (1.9 - 4.2 gm/dL) 2.8 Albumin/Globulin Ratio (1.1 - 2.2 %) 1.4 Lipase (23 - 300 U/L) 740 H Hematology CBC w Diff NO MAN DIFF REQ WBC (4.8 - 10.8 /CUMM) 5.9 RBC (4.20 - 5.40 /CUMM) 3.86 L Hgb (12.0 - 16.0 G/DL) 11.9 L Hct (37 - 47 %) 35.0 L MCV (81.0 - 99.0 FL) 90.7 MCH (27.0 - 31.0 PG) 30.7 MCHC (33.0 - 37.0 G/DL) 33.9 RDW (11.5 - 14.5 %) 13.3 Plt Count (130 - 400 /CUMM) 210 MPV (7.4 - 10.4 FL) 7.6 Gran % (42.2 - 75.2 %) 64.7 Lymphocytes % (20.5 - 51.1 %) 28.9 Monocytes % (1.7 - 9.3 %) 5.1 Eosinophils % (0 - 5 %) 1.0 Basophils % (0.0 - 2.0 %) 0.3 Absolute Granulocytes (1.4 - 6.5 /CUMM) 3.8 Absolute Lymphocytes (1.2 - 3.4 /CUMM) 1.7 Absolute Monocytes (0.10 - 0.60 /CUMM) 0.3 Absolute Eosinophils (0.0 - 0.7 /CUMM) 0.1 Absolute Basophils (0.0 - 0.2 /CUMM) 0 Imaging Results: PATIENT: JANETH GRESHAM PRESENT AGE: 62 PATIENT ACCOUNT NO: [id number] : 56 LOCATION: [facility] ORDERING PHYSICIAN: Lars Wolff MD SERVICE DATE: 02/15/18 EXAM TYPE: CAT - CT ABD & PELVIS W/O IV CONTRAS EXAMINATION: CT ABDOMEN AND PELVIS WITHOUT CONTRAST CLINICAL INFORMATION: Left renal stone. Hydronephrosis. COMPARISON: Renal ultrasound 01/15/[address] of the abdomen and pelvis 08/28/2013. TECHNIQUE: Multidetector volumetric imaging was performed from the superior aspect of the liver through the pubic symphysis. Sagittal and coronal reformatted images were obtained on the technologist's workstation. DLP: 816 mGy-cm FINDINGS: LUNG BASES: The visualized lung bases are unremarkable. LIVER, GALLBLADDER, AND BILIARY TREE: There is a subcentimeter hypoattenuating lesion in the right lobe which is too small to further characterize but is stable since 08/27/2013. No intrahepatic biliary ductal dilatation. Cholecystectomy. PANCREAS: Unremarkable. SPLEEN: Unremarkable. Small splenule noted at the hilum. ADRENAL GLANDS: Unremarkable. KIDNEYS AND URETERS: Left: 2 calculi are present in the renal pelvis measuring 1.4 cm and 1.9 cm. The 1.4 cm calculus is obstructing the ureteropelvic junction. There is an additional punctate calculus in the interpolar region. There is hydronephrosis with pelviectasis and perinephric and periureteral stranding. The middle third of the ureter demonstrates normal caliber without periureteral stranding. Right: No right-sided calculi, hydronephrosis, or stranding. BLADDER: Decompressed but grossly normal. GASTROINTESTINAL TRACT: Postoperative changes related to gastric bypass surgery. No bowel obstruction. Normal appendix. No pericolonic inflammatory change. ABDOMINAL WALL: Small soft tissue nodules in the anterior abdominal wall likely represent granulomas which may be related to injection sites. LYMPH NODES: Small mahogany hepatis and portacaval lymph nodes which are likely reactive. VASCULAR: Minimal atheromatous changes in the abdominal aorta and its branch vessels. PELVIC VISCERA: Normal uterus and adnexa. OSSEOUS STRUCTURES: Multilevel degenerative changes in the thoracolumbar spine. Advanced facet arthropathy L4-L5 and L5-S1. No destructive osseous lesion. IMPRESSION: - Left kidney is obstructed at the level of the ureteropelvic junction by a 1.9 cm calculus. An additional 1.4 cm calculus is seen in the renal pelvis. There is perinephric and periureteral stranding. - Postoperative findings related to gastric bypass surgery. - No other acute abnormality in the abdomen or pelvis. DICTATED BY: Yanira Retana MD DATE/TIME DICTATED:02/15/182122 BAKERY DELIVERER:SHINE DATE/TIME TRANSCRIBED:02/15/182122 CONFIDENTIAL, DO NOT COPY WITHOUT APPROPRIATE AUTHORIZATION. <Electronically signed in Other Vendor System> SIGNED BY: Yanira Retana MD 02/15/18 540 Assessment/Plan Assessment/Plan LEFT OBSTRUCTED KIDNEY WITH POSSIBLE SEPSIS AND UNCONTROLLED PAIN WITH N/V: STENT Copies To: Claudy Page MD Consult Acknowledgment - Thank you for your consult request. Attending Review Statement Attending Statement Attending Statement: examined this patient, discuss w/resident/PA/INSIDE METER TESTER Attending Assessment/Plan: FOR LEFT STENT: WILL CONTACT DR. HUTSON FOR F/U OF URETER STONE.
--- NOTE | 2018-02-16 02:30 | Operative Report ---
Operative/Inv Procedure Report Surgery Date: 02/16/18 Name of Procedure: cystoscopy: left stent insertion Pre-Operative Diagnosis: left renal colic with N/V Post-Operative Diagnosis: same Estimated Blood Loss: scant Surgeon/Electronic Resources Librarian: MD Page Arnold-urology Anesthesia: moderate sedation Complications: none Condition: improved-now pain free Operative/Procedure Note Note: The patient was taken to the operating room placed OR table in supine position. Timeout was performed, with the patient awake, in order to confirm anesthesia, and other pertinent perioperative information. After adequate anesthesia and antibiotics the patient was then placed lithotomy stirrups, draped and prepped in the usual surgical fashion. A 22 [place] cystoscope sheath with 30 angle lens was inserted into the urethra, subsequently into the bladder without difficulty. Upon thorough and systematic surveillance, the bladder was noted to be free of tumor, free of stone. Both ureteral orifices were in their orthotopic position with clear efflux from the right side. The left orifice was intubated with a tiger tail catheter. Retrograde pyelogram, with fluoroscopy, was gently performed in order to confirm hydronephrosis, and a 11 mm left ureter filling defect, consistent with stone, and proximal hydronephrosis. The retrograde pyelogram was also helpful in visualizing the radiolucent left ureters stone. The tiger tail catheter was then removed. The left orifice was then intubated with a 0.035 Glidewire, which was advanced into the left ureter, and renal pelvis, without difficulty, bypassing the left ureter stone. Over this Glidewire a 6 X 22 Bard onlay stent was rail-roaded, into the left ureter without difficulty. With the proximal coil of the stent noted in the left renal pelvis, and the distal coil in the bladder, the Glidewire was removed. The stent remained in proper place, confirmed cystoscopically, and fluoroscopically. The bladder was then drained via the cystoscope, which was then removed without difficulty. All sponege needle and instrument count were correct at the end of the case. The patient tolerated the procedure well, and was taken to recovery room in satisfactory condition. Discharge Disposition: Critical Care Unit Additional Comments: recovered in ICU then to be admitted to floor with medical team CC: Kei MCKINNON,Gabbie; Claudy Page MD
[2018-02-16 03:43] VITALS: BP 112/70
--- NOTE | 2018-02-16 06:45 | Admission Certification ---
Admission Certification Certification Statement - As attending physician, I certify that at the time of - admission, based on clinical presentation, severity of - symptoms, need for further diagnostic testing and - therapeutic interventions, and risk of adverse outcomes - without in-hospital treatment, in my clinical assessment, - this patient requires an acute hospital stay for a minimum - of two nights or longer. I have also considered psychsocial - factors such as support system, advanced age, financial - issues, cognitive issues, and failed out-patient treatments, - past re-admission history, safety of patient, and lack of - compliance as applicable. Specific rationale supporting this admission is: left Ureteropelvic obstructing stone with pyelonephritis
[2018-02-16 06:55] VITALS: BP 112/64
--- NOTE | 2018-02-16 07:31 | PN- Housestaff ---
[place] MCKINNON,Sami 02/16/18 0731: Subjective Follow-up For: pyelonephritis left renal pelvis 2cm nephrolithiasis with hydronephrosis Subjective: patient is afebrile continues to have left flank pain hematuria no new complaints Review of Systems Constitutional: Reports: see HPI. Objective Last 24 Hrs of Vital Signs/I&O Vital Signs Date Time Temp Pulse Resp B/P B/P Pulse O2 O2 Flow FiO2 Mean Ox Delivery Rate 02/16 1041 Room Air Room Air 02/16 0655 97.4 72 20 112/64 97 Room Air 02/16 0343 98.0 75 20 112/70 98 Room Air 02/16 0123 97.8 78 18 140/67 97 Room Air 02/15 2245 97.0 81 22 130/76 98 Room Air 02/15 2117 97.4 73 18 130/68 98 02/15 1924 98.0 80 16 123/81 98 Room Air Intake & Output 02/16 1600 02/16 0800 02/16 0000 Intake Total 360 Output Total 525 Balance -165 Intake, Oral 360 Output, Urine 525 Patient 97.522 kg 91.172 kg Weight Weight Bed scale Reported by Patient Measurement Method Physical Exam General Appearance: Alert, Oriented X3, Cooperative, No Acute Distress Cardiovascular: Regular Rate, Normal S1, Normal S2, No Murmurs Lungs: Clear to Auscultation, Normal Air Movement Abdomen: Normal Bowel Sounds, Soft, No Tenderness, No Masses, mild left cva tenderness Extremities: No Clubbing, No Cyanosis, No Edema, Normal Pulses Current Medications: Current Medications Sig/Rai Start time Last Medication Dose Route Stop Time Status Admin Ceftriaxone Sodium 1,000 MG DAILY 02/16 900 AC 02/16 IV 911 Ceftriaxone Sodium 0 .STK-MED ONE 02/16 0137 DC .ROUTE Ceftriaxone Sodium 2,000 MG ONCE ONE 02/15 2330 DC 02/16 IV 02/15 2331 0136 Chlorhexidine 0 .STK-MED ONE 02/16 0803 DC Gluconate TOP 02/16 0804 Cyclobenzaprine HCl 10 MG TID 02/16 09 AC 02/16 PO 0912 Diphenhydramine HCl 0 .STK-MED ONE 02/15 2218 DC .ROUTE Diphenhydramine HCl 25 MG ONCE ONE 02/15 2200 DC 02/15 IV 02/15 2201 2214 Ketorolac 0 .STK-MED ONE 02/15 2019 DC Tromethamine .ROUTE Ketorolac 30 MG ONCE ONE 02/16 2000 DC 02/15 Tromethamine IV 02/15 Lidocaine 1 BRIGITTE BID PRN 02/16 1030 AC TOP Midazolam HCl 2 MG .STK-MED ONE 02/16 0141 DC IM 02/16 0142 Montelukast Sodium 10 MG 1700 02/16 0900 AC 02/16 PO 0912 Morphine Sulfate 2 MG Q6P PRN 02/16 0430 CAN IV Morphine Sulfate 2 MG Q4P PRN 02/16 0400 AC 02/16 IV 1043 Morphine Sulfate 0 .STK-MED ONE 02/15 2232 DC .ROUTE Morphine Sulfate 6 MG ONCE ONE 02/15 2200 DC 02/15 IV 02/15 2201 2227 Ondansetron HCl 0 .STK-MED ONE 02/15 2019 DC .ROUTE Ondansetron HCl 4 MG ONCE ONE 02/16 2000 DC 02/15 IV 02/15 Oxycodone HCl 5 MG Q6 PRN 02/16 0430 02/16 PO 0912 Patient Medication 1 ED ONE ONE 02/16 1115 DC Teaching ED 02/16 1116 Ropinirole HCl 1 MG QPM 02/16 2100 AC PO Tramadol HCl 50 MG Q6 PRN 02/16 0430 AC PO Last 24 Hrs of Lab/Rudy Results Last 24 Hrs of Labs/Mics: Laboratory Tests 02/16/18 0657: Anion Gap 10, Estimated GFR > 60, BUN/Creatinine Ratio 18.3, Lipase 45, CBC w Diff NO MAN DIFF REQ, RBC 3.48 L, MCV 91.2, MCH 30.7, MCHC 33.7, RDW 13.1, MPV 7.6, Gran % 49.8, Lymphocytes % 45.0, Monocytes % 3.6, Eosinophils % 1.5, Basophils % 0.1, Absolute Granulocytes 2.4, Absolute Lymphocytes 2.1, Absolute Monocytes 0.2, Absolute Eosinophils 0.1, Absolute Basophils 0 02/16/18 0115: PT 12.6 H, INR 1.15, APTT 40 H 02/15/182204: Urine Color YEL, Urine Clarity HAZY H, Urine pH 6.5, Ur Specific [place] 1.020, Urine Protein NEG, Urine Ketones NEG, Urine Nitrite NEG, Urine Bilirubin NEG, Urine Urobilinogen 0.2, Ur Leukocyte Esterase SMALL H, Ur Microscopic SEDIMENT EXAMINED, Urine RBC 3-5, Urine WBC 25-50 H, Ur Epithelial Cells RARE, Urine Bacteria FEW H, Urine Mucus MOD H, Urine Hemoglobin SMALL H, Urine Glucose NEG 02/15/18 2015: Anion Gap 10, Estimated GFR > 60, BUN/Creatinine Ratio 21.7, Glucose 121 H, Calcium 9.0, Total Bilirubin 0.4, AST 23, ALT 29, Alkaline Phosphatase 47, Total Protein 6.7, Albumin 3.9, Globulin 2.8, Albumin/Globulin Ratio 1.4, Lipase 740 H, CBC w Diff NO MAN DIFF REQ, RBC 3.86 L, MCV 90.7, MCH 30.7, MCHC 33.9, RDW 13.3, MPV 7.6, Gran % 64.7, Lymphocytes % 28.9, Monocytes % 5.1, Eosinophils % 1.0, Basophils % 0.3, Absolute Granulocytes 3.8, Absolute Lymphocytes 1.7, Absolute Monocytes 0.3, Absolute Eosinophils 0.1, Absolute Basophils 0 Microbiology 02/16 0125 BLOOD: Blood Culture - RECD 02/16 0115 BLOOD: Blood Culture - RECD 02/15 2205 URINE ROUT: Urine Culture - RECD Assessment/Plan Assessment: 62 year old female with past medical history significant for COPD, nephrolithiasis with multiple urological procedures and gastric bypass presented with left renal colic with renal pelvis stone on CT and hydronephrosis s/p left ureteral stent placement. Left renal pelvis nephrolithiasis with hydronephrosis: No fever or leukocytosis, left renal colic UA notable for WBCs and small amount of leukocyte esterase Follow up urine cultures, no resistant organisms in the past Strep and E. coli on previous urine cultures Urology consultation s/p left ureteral stent placement yesterday with Dr. Page Currently on intravenous ceftriaxone Continue all other home medications Discussed case with Dr. Choudhury, scheduled for lithotripsy on 02/21/18. Stable for discharge on ciprofloxacin 500mg po bid x 14 days for pyelonephritis Will need preoperative evaluation with her primary care physician Problem List: 1. Kidney stones 2. Pyelonephritis Pain Ratin Pain Location: left flank Pain Goal: Pain 4 or less Pain Plan: prn Tomorrow's Labs & Rationales: none, discharge Dennis MCKINNONJulian 02/16/18 1157: Attending MD Review Statement Attending Statement Attending MD Statement: examined this patient, discuss w/resident/PA/QA LEAD, agreed w/resident/PA/QA LEAD, reviewed EMR data (avail), discussed with nursing, discussed with case mgmt, amended to note Attending Assessment/Plan: Patient seen and examined. Complains of chronic back pain and flank pain related to her nephrolithiasis. Pain is currently controlled on the current regimen. She denies any nausea vomiting. She tolerated her breakfast this morning. She remains afebrile. She remains without any leukocytosis. Urine cultures are currently pending. Given her clinical stability she may be discharged home today on oral antibiotic therapy. Given her pyelonephritis she will need to complete a 14 day course of therapy. She will be following up with the urology service for stent removal and lithotripsy in the future. She has a history of anemia which is chronic. Hemoglobin levels are close to baseline.
[2018-02-16 08:15] LABS: ABSOLUTE BASOPHIL COUNT 0 /CUMM (0.0-0.2); ABSOLUTE EOSINOPHIL COUNT 0.1 /CUMM (0.0-0.7); ABSOLUTE GRANULOCYTE CT 2.4 /CUMM (1.4-6.5); ABSOLUTE LYMPH COUNT 2.1 /CUMM (1.2-3.4); ABSOLUTE MONOCYTE COUNT 0.2 /CUMM (0.10-0.60); BASOPHIL % 0.1 % (0.0-2.0); EOSINOPHIL % 1.5 % (0-5); GRANULOCYTE % 49.8 % (42.2-75.2); HEMATOCRIT 31.8 % (37-47); MEAN CORPUSCULAR HGB 30.7 PG (27.0-31.0); MEAN CORPUSCULAR HGB CONC 33.7 G/DL (33.0-37.0); MEAN CORPUSCULAR VOLUME 91.2 FL (81.0-99.0); MEAN PLATELET VOLUME 7.6 FL (7.4-10.4); PLATELET COUNT 196 /CUMM (130-400); RBC DISTRIBUTION WIDTH 13.1 % (11.5-14.5); RED BLOOD CELL CT 3.48 /CUMM (4.20-5.40); WHITE BLOOD CELL COUNT 4.8 /CUMM (4.8-10.8)
[2018-02-16] MEDS ORDERED: CIPRO500 M1 PO ×2 (11:56→12:00)
--- NOTE | 2018-02-16 11:57 | Patient Discharge Instructions ---
Discharge Instructions General Discharge Information You were seen/treated for: pyelonephritis left renal stone with hydronephrosis Special Instructions: You had a stent placed for kidney stone. You have an infection of your kidney called pyelonephritis. You are schedule for lithotripsy with Dr. Choudhury 02/21/18. You will need to see your primary care physician for medical clearance. Please take 7 days of cipro 500mg twice a day. Acute Coronary Syndrome Inclusion Criteria At DC or during hospital stay patient has or had the following: ACS DIAGNOSIS No Discharge Core Measures Meds if any: Prescribed or Continued at Discharge Meds if any: NOT Prescribed or Continued at Discharge Congestive Heart Failure Inclusion Criteria At DC or during hospital stay patient has or had the following: CHF DIAGNOSIS No Discharge Core Measures Meds if any: Prescribed or Continued at Discharge Meds if any: NOT Prescribed or Continued at Discharge Cerebrovascular accident Inclusion Criteria At DC or during hospital stay patient has or had the following: CVA/TIA Diagnosis No Discharge Core Measures Meds if any: Prescribed or Continued at Discharge Meds if any: NOT Prescribed or Continued at Discharge Venous thromboembolism Inclusion Criteria VTE Diagnosis No VTE Type NONE VTE Confirmed by (Test) NONE Discharge Core Measures - Per Current guidelines, there needs to be overlap - treatment for the first 5 days of Warfarin therapy. - If discharged on Warfarin prior to 5 days of - overlap therapy, the patient will need to be - assessed for post discharge needs including - *Post discharge parental anticoagulation - *Warfarin and/or parental anticoagulation education - *Follow up date to check INR post discharge At least 5 days overlap therapy as Inpatient No Meds if any: Prescribed or Continued at Discharge Note: Overlap Therapy is Warfarin and Anticoagulant Meds if any: NOT Prescribed or Continued at Discharge
--- NOTE | 2018-02-16 12:30 | Discharge Summary ---
Visit Information Visit Dates Admission Date: 02/16/18 Discharge Date: 02/16/18 Hospital Course Course Attending Physician: Wilma Silva MD Primary Care Physician: Jeanette Johnson APRN [facility] Course: 62 year old female with past medical history significant for COPD, MIRLANDE on CPAP and recurrent nephrolithiasis with multiple urological procedures presented with left renal colic with renal pelvis stone with hydronephrosis on CT. The patient was given intravenous fluids, ceftriaxone, and medications for analgesia. She was taken to the operating room for an uncomplicated left ureteral stent placement with urology. She was afebrile without leukocytosis. Her urinalysis was positive for WBCs and leukocyte esterase and her CT demonstrated left perinephric and periureteral stranding consistent with pyelonephritis. Her care was discussed with her outpatient urologist, Dr. Choudhury. She was discharged on a total two week course of ciprofloxacin 500mg po bid and was scheduled for lithotripsy as an outpatient on 02/21/18. She was also given fifteen tablets of oxycodone 5mg q6h prn for analgesia, and diflucan 150mg x 1 for a history of vaginal yeast infection on antibiotics. She was instructed to follow up her with her primary care physician and urologist. Allergies: Coded Allergies: NO KNOWN ALLERGIES (08/07/16) Significant Procedures: CT ABD & PELVIS W/O IV CONTRAST 02/15/18 EXAMINATION: CT ABDOMEN AND PELVIS WITHOUT CONTRAST CLINICAL INFORMATION: Left renal stone. Hydronephrosis. COMPARISON: Renal ultrasound 01/15/[address] of the abdomen and pelvis 08/28/2013. TECHNIQUE: Multidetector volumetric imaging was performed from the superior aspect of the liver through the pubic symphysis. Sagittal and coronal reformatted images were obtained on the technologist's workstation. DLP: 816 mGy-cm FINDINGS: LUNG BASES: The visualized lung bases are unremarkable. LIVER, GALLBLADDER, AND BILIARY TREE: There is a subcentimeter hypoattenuating lesion in the right lobe which is too small to further characterize but is stable since 08/27/2013. No intrahepatic biliary ductal dilatation. Cholecystectomy. PANCREAS: Unremarkable. SPLEEN: Unremarkable. Small splenule noted at the hilum. ADRENAL GLANDS: Unremarkable. KIDNEYS AND URETERS: Left: 2 calculi are present in the renal pelvis measuring 1.4 cm and 1.9 cm. The 1.4 cm calculus is obstructing the ureteropelvic junction. There is an additional punctate calculus in the interpolar region. There is hydronephrosis with pelviectasis and perinephric and periureteral stranding. The middle third of the ureter demonstrates normal caliber without periureteral stranding. Right: No right-sided calculi, hydronephrosis, or stranding. BLADDER: Decompressed but grossly normal. GASTROINTESTINAL TRACT: Postoperative changes related to gastric bypass surgery. No bowel obstruction. Normal appendix. No pericolonic inflammatory change. ABDOMINAL WALL: Small soft tissue nodules in the anterior abdominal wall likely represent granulomas which may be related to injection sites. LYMPH NODES: Small mahogany hepatis and portacaval lymph nodes which are likely reactive. VASCULAR: Minimal atheromatous changes in the abdominal aorta and its branch vessels. PELVIC VISCERA: Normal uterus and adnexa. OSSEOUS STRUCTURES: Multilevel degenerative changes in the thoracolumbar spine. Advanced facet arthropathy L4-L5 and L5-S1. No destructive osseous lesion. IMPRESSION: - Left kidney is obstructed at the level of the ureteropelvic junction by a 1.9 cm calculus. An additional 1.4 cm calculus is seen in the renal pelvis. There is perinephric and periureteral stranding. - Postoperative findings related to gastric bypass surgery. - No other acute abnormality in the abdomen or pelvis. Disposition Summary Disposition Principal Diagnosis: Pyelonephritis Left renal pelvis nephrolithiasis with hydronephrosis requiring ureteral stent placement Additional Diagnosis: COPD MIRLANDE on CPAP History of DM, resolved after bariatric surgery Recurrent nephrolithiasis with multiple urological procedures Discharge Disposition: home or self care Discharge Instructions General Discharge Information Code Status: Full Code Patient's Diet: Regular diet Patient's Activity: As tolerated Follow-Up Instructions/Appts: Follow up with Dr. Choudhury of urology, you are scheduled for lithotripsy on , and your primary care physician after discharge. Medications at Discharge Discharge Medications: Continue taking these medications: Montelukast Sodium (Singulair) 10 MG TABLET 1 Tablet ORAL DAILY Comments: Last Taken: 02/16/18 Time: 0915 AM Cyclobenzaprine HCl (Cyclobenzaprine HCl) 10 MG TABLET 1 Tablet ORAL THREE TIMES DAILY Comments: Last Taken: 02/16/18 Time: 0915 AM Ropinirole HCl (Requip) 1 MG TABLET 1 Tablet ORAL Every night Comments: NOT GIVEN IN HOSPITAL Lidocaine/Prilocaine (Lidocaine-Prilocaine Cream) 2.5 %-2.5 % CREAM..G. 1 Application On the skin As Directed Comments: Last Taken: 02/16/18 Time: 1250 PM Eszopiclone (Eszopiclone) 3 MG TABLET 1 Tablet ORAL Every night Qty = 30 Comments: NOT TAKEN IN HOSPITAL Start taking the following new medications: Ciprofloxacin HCl (Cipro) 500 MG TABLET 1 Tablet ORAL TWICE DAILY Qty = 28 No Refills Oxycodone HCl (Oxycodone HCl) 5 MG TABLET 1 Tablet ORAL EVERY SIX HOURS NEEDED Qty = 15 No Refills Comments: Last Taken: 02/16/18 Time: 0915 AM Fluconazole (Diflucan) 150 MG TABLET 1 Tablet ORAL GIVE ONCE Qty = 1 No Refills Copies To: Jeanette Johnson APRN Attending Review Statement Documenting Attending: Julian Collins MD Other Findings: Discharged in stable condition. Attending Review Statement Documenting Attending: Julian Collins MD
[2018-02-16] MEDS ORDERED: OXYCODONE HCL5 M1 PO (12:49)
[2018-02-16] MEDS ORDERED: DIFLUCAN150 M1 PO (12:49)
== END 2018-02-16 13:23 | DRG 463 ==
LOC: ERH 19:11 → ERHI 02-16 00:37 → 2NA 02-16 00:37 → ENRESERV 02-16 01:56 → 2NA 02-16 03:32 → ENPENDDIS 02-16 12:35 → 2NA 02-16 13:23
PROVIDERS: Emergency Medicine; Student in an Organized Health Care Education/Training Program
PROC: 0T778DZ Dilation of Left Ureter with Intraluminal Device, Via Natural or Artificial Opening Endoscopic (ICD-10-PCS; principal; 2018-02-16)
DX: N12 Tubulo-interstitial nephritis, not specified as acute or chronic (principal); Z98.84 Bariatric surgery status; Z90.49 Acquired absence of other specified parts of digestive tract; N13.30 Unspecified hydronephrosis; G47.33 Obstructive sleep apnea (adult) (pediatric); J44.9 Chronic obstructive pulmonary disease, unspecified; E78.5 Hyperlipidemia, unspecified; M54.9 Dorsalgia, unspecified
CPT/HCPCS: 2NASP; 36415; 74176; 81001; 82436; 87040; 87086; 93005; 93010; C2617; J0696; J1200; J1885; J2405; J3010

== ENCOUNTER → 2018-02-21 | Day surgery (SDC) | payer OTHER ==
[~2018-02-21] VITALS: Ht 170.2 cm; Wt 92.5 kg
[~2018-02-21] MED LIST changes: +AMMONIUM LACTA226 GM TOP; +CIPRO500 M1 PO; +DIFLUCAN150 M1 PO; +FENOFIBRIC ACI135 M1 PO; +HAIR, SKIN & N1 EACH PO; +MULTIVITAMINS1 EAC9 PO; +NYAMYC15 GM TOP; +OXYCODONE HCL5 M1 PO; +PROAIR HFA8.5 GM INH
--- NOTE | 2018-02-21 09:02 | Operative Report ---
Operative/Inv Procedure Report Surgery Date: 02/21/18 Name of Procedure: left ESWL Pre-Operative Diagnosis: left renal stones Post-Operative Diagnosis: same Estimated Blood Loss: scant Surgeon/Manager Pricing: Gabbie Choudhury MD Anesthesia: local monitored anesthesi Complications: none Condition: stable Operative Indication: left renal stones x2 very large Operative/Procedure Note Note: 60 yo female with a hx of bilateral kidney stones who was seeing Dr. Rosas. He was treating her with potassium pills and it shrunk the stones down. Her last renal US was a year ago and she had a large 1.5cm stone on the left side. She had an urgent left stent placed last week with Dr. Page due to pain and obstruction. She was consented for left Extracorporeal Shockwave Lithotripsy after the risks, benefits and alternatives. All questions were answered. Patient was taken to the operating room placed on the operating table in the supine position. Timeout was performed. IV antibiotics were infused. IV sedation was started and patient was placed in the most optimal position to target the left renal stones. She had 2 very large stone seen on CAT scan with the moderate hydronephrosis. She had an urgent stent placed last week with Dr. Page. As result she did not need a stent placement with this procedure. Shockwave lithotripsy was started at a power of 1-17 for 250 shocks followed by power of 18-19 for 250 shocks followed by 2000 shocks at power of 20. The stone was visibly changed after the shockwave lithotripsy. Patient tolerated the procedure well. She was transferred to the recovery room stable condition. Findings: Very large stones in the left renal pelvis Discharge Disposition: Same Day Admissions
== END ==
LOC: STS 01:11
DX: N20.0 Calculus of kidney (principal); N13.30 Unspecified hydronephrosis; Z87.442 Personal history of urinary calculi; G47.33 Obstructive sleep apnea (adult) (pediatric); J44.9 Chronic obstructive pulmonary disease, unspecified; Z99.81 Dependence on supplemental oxygen; E11.9 Type 2 diabetes mellitus without complications; Z79.4 Long term (current) use of insulin; I10 Essential (primary) hypertension
CPT/HCPCS: J0690; J2250